=== PATIENT | male | born 1990 | race Caucasian/White ===

== ENCOUNTER 2023-04-20 20:34 | Emergency (ER) | payer MEDICAID, SELFPAY ==
[2023-04-20 20:41] VITALS: BP 138/84; PULSE 117; RESP 18; TEMP 36.5; O2SAT 97; BMI 21.7
[2023-04-20 21:01] LABS: Basophils # 0.1 10^3/uL (0.0-0.1); Basophils % 1.2 %; Eosinophils # 0.5 10^3/uL (0.0-0.8); Eosinophils % 4.9 %; Lymphocytes # 4.7 10^3/uL (0.8-4.8); Mean Corpuscular HGB Conc 34.3 g/dL (30-55); Mean Corpuscular Hemoglobin 30.9 pg (27-33); Mean Corpuscular Volume 89.8 fl (82-101); Mean Platelet Volume 10.2 fL (7.4-10.4); Monocytes # 0.5 10^3/uL (0.2-0.9); Monocytes % 4.9 %; Neutrophils # 4.38 10^3/uL (1.8-7.7); Neutrophils % 42.9 %; Nucleated Red Blood Cells % 0 %; Platelet Count 341 10^3/cmm (157-399); Red Blood Count 5.12 10^6/uL (3.85-5.65); Red Cell Distribution Width 15.2 % (12.1-15.1)
--- NOTE | 2023-04-20 21:04 | W.ED.SEIZURE ---
HPI - Seizure General: Chief Complaint: Seizure Stated Complaint: mhe Time Seen by Provider: 04/20/23 20:52 History of Present Illness: HPI Narrative: Patient presents to the ER with complaints of heavy ethanol use over the past multiple months. He has tried detoxing multiple times and has a history of seizures. Patient admits to drinking 2 pints of vodka per day. Patient is trying to Detox currently and has good support and go to [employer] and has support on his job patient is tried detoxing multiple times in the past. Patient does have a history of seizures when he does this. Patient is also been on Librium in the past for this. Patient presents to the ER today to ask for a prescription of Librium and to check his liver function. Review of Systems General: Reports: 10 or more systems reviewed and unremarkable except in HPI and below PFSH ED PFSH: Family History Denies family history of Diabetes Clotting disorder Heart disease Bleeding disorder Cancer Hypertension Thyroid disease Stroke Physical Exam Const: COMMON NORMALS: no acute distress, average body habitus, patient oriented x3, no limitations, healthy appearing, alert and well nourished HENMT: COMMON NORMALS: normocephalic, atraumatic, hearing grossly normal bilaterally, external ears normal, Normal external nose present, moist oral mucous membranes and oropharynx normal HEAD & SCALP: normocephalic and atraumatic NOSE: Normal external nose present EXTERNAL EAR: Yes external ears normal Neck/C-Spine: COMMON NORMALS: full ROM, no lymphadenopathy, supple, no meningeal signs, no JVD and Thyroid normal THYROID: Thyroid normal Chest: COMMONS NORMALS: normal inspection of the chest and normal palpation of entire chest wall Resp: COMMON NORMALS: normal respiratory effort, No retractions, No use of accessory muscles and clear to auscultation bilaterally AUSCULTATION: clear to auscultation bilaterally Cardio: COMMON NORMALS: no JVD, regular rate, regular rhythm, S1 normal heart sound present, S2 normal heart sound present, No gallops present (Cardio), No clicks present (Cardio), No murmurs present (Cardio) and No rub (Cardio) RATE: regular rate RHYTHM: regular rhythm HEART SOUNDS: S1 normal heart sound present and S2 normal heart sound present GI: COMMON NORMALS: Normal to inspection, nondistended, normoactive bowel sounds present, Soft to palpation, non-tender, No hepatosplenomegaly present and no masses PALPATION: Yes Soft to palpation and Yes No hepatosplenomegaly present Neuro: COMMON NORMALS: patient oriented x3 SENSORIUM/ORIENTATION: Yes alert MENINGEAL SIGNS: Yes no meningeal signs Course Vital Signs: Vital signs: Vital Signs Temperature 97.7 F 04/20/23 20:41 Pulse Rate 117 H 04/20/23 20:41 Respiratory Rate 18 04/20/23 20:41 Blood Pressure 138/84 04/20/23 20:41 Pulse Oximetry 97 04/20/23 20:41 Oxygen Delivery Me thod Room Air 04/20/23 20:41 MDM - Seizure Differential Diagnosis Seizure Differential Diagnosis: Unlikely intractable seizure disorder, febrile convulsion, focal seizure, generalized seizure, new onset seizure, epileptic seizure or status epilepticus Medical Records Attestation: I reviewed the patient's medical records. Lab Data Attestation: I reviewed the patient's lab results. 04/20/23 20:55 04/20/23 20:55 Labs: Laboratory Results WBC 10.20 10^3/uL (3.29-11.43) 04/20/23 20:55 RBC 5.12 10^6/uL (3.85-5.65) 04/20/23 20:55 Hgb 15.80 g/dL (11.27-16.99) 04/20/23 20:55 Hct 46.0 % (37-53) 04/20/23 20:55 MCV 89.8 fl (82-101) 04/20/23 20:55 MCH 30.9 pg (27-33) 04/20/23 20:55 MCHC 34.3 g/dL (30-55) 04/20/23 20:55 RDW 15.2 % (12.1-15.1) H 04/20/23 20:55 Plt Count 341 10^3/cmm (157-399) 04/20/23 20:55 MPV 10.2 fL (7.4-10.4) 04/20/23 20:55 Neut % (Auto) 42.9 % 04/20/23 20:55 Lymph % (Auto) 46.0 % 04/20/23 20:55 [place] % (Auto) 4.9 % 04/20/23 20:55 Eos % (Auto) 4.9 % 04/20/23 20:55 Baso % (Auto) 1.2 % 04/20/23 20:55 Neut # (Auto) 4.38 10^3/uL (1.8-7.7) 04/20/23 20:55 Lymph # (Auto) 4.7 10^3/uL (0.8-4.8) 04/20/23 20:55 [place] # (Auto) 0.5 10^3/uL (0.2-0.9) 04/20/23 20:55 Eos # (Auto) 0.5 10^3/uL (0.0-0.8) 04/20/23 20:55 Baso # (Auto) 0.1 10^3/uL (0.0-0.1) 04/20/23 20:55 Nucleated RBC % (auto) 0 % 04/20/23 20: Nucleated RBCs # 0.0 /100WBC 04/20/23 20:55 Potassium 4.2 mmol/L (3.5-5.1) 04/20/23 20:55 Carbon Dioxide 25 mmol/L (22-29) 04/20/23 20:55 Anion Gap 18.2 (5-19) 04/20/23 20:55 BUN 9 mg/dL (6-20) 04/20/23 20:55 Glucose 115 mg/dL (65-115) 04/20/23 20:55 Calcium 8.9 mg/dL (8.5-10.5) 04/20/23 20:55 Total Bilirubin 0.2 mg/dL (0.15-1.2) 04/20/23 20:55 AST 36 U/L (0-40) 04/20/23 20:55 ALT 23 U/L (0-41) 04/20/23 20:55 Alkaline Phosphatase 90 U/L (40-130) 04/20/23 20:55 Total Protein 7.5 g/dL (6.6-8.7) 04/20/23 20:55 Albumin 4.6 g/dL (3.5-5.2) 04/20/23 20:55 Globulin 2.9 g/dL (1.3-4.6) 11/20/23 20:55 All radiology interpretation(s) finalized by discharge Discharge Plan Discharge Patient Disposition: Home Clinical Impression: Alcohol intoxication Qualifiers: Complication of substance-induced condition: uncomplicated Qualified Code(s): F10.920 - Alcohol use, unspecified with intoxication, uncomplicated Condition: Stable Prescriptions: New chlordiazepoxide HCl 25 mg capsule 25 mg PO Q8H PRN (Reason: alcohol withdrawal) Qty: 30 0RF No Action No Known Home Medications Discharge Orders: Discharge ED (Routine); Ordered 04/20/23 Ordered By: Barry Johnson Patient Instructions: Alcohol Withdrawal Activity Restrictions/Additional Instructions: Please use your medicine as directed as needed. Please follow-up with your family practice physician for further evaluation and treatment. Please keep going to your support groups for alcohol use. Coding Level of Care Code ED Hvac Project Manager for Ninfa Russo
[2023-04-20 21:22] LABS: Alanine Aminotransferase 23 U/L (0-41); Albumin Level 4.6 g/dL (3.5-5.2); Alkaline Phosphatase 90 U/L (40-130); Anion Gap 18.2 (5-19); Aspartate Amino Transferase 36 U/L (0-40); Blood Urea Nitrogen 9 mg/dL (6-20); Calcium 8.9 mg/dL (8.5-10.5); Carbon Dioxide 25 mmol/L (22-29); Chloride 109 mmol/L (98-107); Globulin 2.9 g/dL (1.3-4.6); Glomerular Filtration Rate 191.5 mL/min (90-130); Glucose 115 mg/dL (65-115); Osmolality Calculated 306 mOsm/kg (285-295); Potassium 4.2 mmol/L (3.5-5.1); Sodium 148 mmol/L (136-145); Total Bilirubin 0.2 mg/dL (0.15-1.2); Total Protein 7.5 g/dL (6.6-8.7)
[2023-04-20 21:37] LABS: Acetaminophen < 5.0 ug/mL (10-30); Salicylate < 0.3 mg/dL (3-10)
[2023-04-20 21:38] LABS: Alcohol Level 345 mg/dL (0-10)
[2023-04-21 00:28] VITALS: PULSE 82; RESP 16
== END 2023-04-21 00:32 | disposition home or self-care (01) ==
PROVIDERS: Emergency Provider Emergency Medicine
DX: F10.920 Alcohol use, unspecified with intoxication, uncomplicated (principal)
CPT/HCPCS: 36415; 80053; 80307; 85025; 99283

== ENCOUNTER 2023-05-01 19:33 | Emergency (ER) | payer MEDICAID, SELFPAY ==
[2023-05-01 19:37] VITALS: BP 141/93; PULSE 108; RESP 17; TEMP 36.8; O2SAT 96; BMI 23.0
[2023-05-01 20:19] LABS: Basophils # 0.1 10^3/uL (0.0-0.1); Basophils % 1.3 %; Eosinophils # 0.2 10^3/uL (0.0-0.8); Eosinophils % 2.1 %; Hematocrit 49.7 % (37-53); Lymphocytes % 41.4 %; Mean Corpuscular HGB Conc 33.6 g/dL (30-55); Mean Corpuscular Hemoglobin 31.2 pg (27-33); Mean Corpuscular Volume 92.7 fl (82-101); Mean Platelet Volume 10.3 fL (7.4-10.4); Monocytes # 0.5 10^3/uL (0.2-0.9); Monocytes % 5.4 %; Neutrophils # 4.77 10^3/uL (1.8-7.7); Neutrophils % 49.6 %; Nucleated Red Blood Cells % 0 %; Platelet Count 367 10^3/cmm (157-399); Red Blood Count 5.36 10^6/uL (3.85-5.65); Red Cell Distribution Width 15.4 % (12.1-15.1)
[2023-05-01 20:54] LABS: Alanine Aminotransferase 33 U/L (0-41); Albumin Level 4.9 g/dL (3.5-5.2); Alkaline Phosphatase 82 U/L (40-130); Aspartate Amino Transferase 52 U/L (0-40); Blood Urea Nitrogen 9 mg/dL (6-20); Calcium 8.9 mg/dL (8.5-10.5); Carbon Dioxide 25 mmol/L (22-29); Chloride 108 mmol/L (98-107); Globulin 2.9 g/dL (1.3-4.6); Glomerular Filtration Rate 191.5 mL/min (90-130); Glucose 96 mg/dL (65-115); Osmolality Calculated 303 mOsm/kg (285-295); Sodium 147 mmol/L (136-145); Total Bilirubin 0.2 mg/dL (0.15-1.2); Total Protein 7.8 g/dL (6.6-8.7)
[2023-05-01 20:58] LABS: Acetaminophen < 5.0 ug/mL (10-30); Salicylate < 0.3 mg/dL (3-10)
[2023-05-01 20:59] LABS: Alcohol Level 426 mg/dL (0-10)
--- NOTE | 2023-05-01 21:14 | ECG_ITS ---
[facility] Test Date: 2023-05-01 Pat Name: Vahe Mcdonald Department: Room: Gender: Male Manager [employer] Business: : 1990 Requested By: Ben Montes Order Number: [id number] Christianson MD: Beth Rob M.D. Measurements Intervals [place] Rate: 95 P: 78 NM: 161 QRS: 59 QRSD: 89 T: 68 QT: 359 QTc: 453 Interpretive Statements SINUS RHYTHM POSSIBLE RIGHT ATRIAL ENLARGEMENT [0.25mV P-WAVE] POSSIBLE LEFT ATRIAL ENLARGEMENT [-0.1mV P-WAVE IN V1/V2] POSSIBLE RIGHT VENTRICULAR CONDUCTION DELAY [RSR (QR) IN V1/V2] No previous ECG available for comparison Electronically Signed On 05-02-2023 5:55:45 [employer]OVEN [employer] SHADE ASSEMBLER by Beth Rob M.D. [email or web address]
[2023-05-01 21:25] LABS: Thyroid Stimulating Hormone 0.57 uIU/mL (0.27-4.20)
[2023-05-01 21:26] LABS: Amphetamines Screen Urine Negative (Negative); Barbiturates Screen Urine Negative (Negative); Benzodiazepines Screen Urine Positive (Negative); Cocaine Screen Urine Negative (Negative); Opiate Screen Urine Negative (Negative); PCP Screen Urine Negative (Negative); THC Screen Urine Negative (Negative)
--- NOTE | 2023-05-01 21:26 | ED.C_ITS ---
HPI - Psych 2 General: Chief Complaint: Psychiatric Symptoms Stated Complaint: Seizure, etoh detox Time Seen by Provider: 05/01/23 19:56 History of Present Illness: 32-year-old male with a history of alcoh ol abuse. He presents with alcohol intoxication. He also made a claim anyone issued himself with a gun to kill himself. He admits to having 2 pints of whiskey drink earlier today. No other medical history. Her only other prior visit for this gentleman was for alcohol intoxication and wanting to detox several days ago. Associated symptoms: Reports depression and suicidal ideation; Deny homicidal ideation Review of Systems 2 Const: Denies: fever(s) Card: Denies: chest pain GI: Denies: vomiting Neuro: Reports: Slurred speech present Psych: Reports: depression and suicidal ideation; Denies: homicidal ideation PFSH ED 2 PFSH: Family History Denies family history of Diabetes Clotting disorder Heart disease Bleeding disorder Cancer Hypertension Thyroid disease Stroke Physical Exam 2 Const: COMMON NORMALS: no acute distress GENERAL APPEARANCE: cooperative; not ill appearing and not frail appearing HENMT: COMMON NORMALS: normocephalic, atraumatic and Normal external nose present HEAD & SCALP: normocephalic and atraumatic FACE & SINUS: normal facial exam and face symmetric NOSE: Normal external nose present Eye: COMMON NORMALS: Equal, round and reactive pupils present and EOMs intact bilaterally PUPIL: Yes Equal, round and reactive pupils present Neck/C-Spine: GENERAL: Yes trachea midline Chest: CHEST: Yes Symmetrical chest wall rise Resp: COMMON NORMALS: normal respiratory effort, No retractions, No use of accessory muscles and clear to auscultation bilaterally AUSCULTATION: clear to auscultation bilaterally Cardio: COMMON NORMALS: regular rate and regular rhythm RATE: regular rate RHYTHM: regular rhythm GI: COMMON NORMALS: Normal to inspection, nondistended, normoactive bowel sounds present Extremity: COMMON NORMALS: no pedal edema Neuro: MACARIO COMA SCALE: document GCS findings Macario coma scale eye opening: To sound Macario coma scale verbal response: Orientated [place] coma scale motor response: Obey commands [place] coma scale total score: 14 S ENSORY EXAM: Yes extremities (intact) Psych: COMMON NORMALS: speech normal SPEECH: Yes normal speech Skin: COMMON NORMALS: no rashes or lesions noted GENERAL SKIN EXAM: no rashes or lesions noted Course 2 Vital Signs: Vital signs: Vital Signs Temperature 98.3 F 05/01/23 19:37 Pulse Rate 108 H 05/01/23 19:37 Respiratory Rate 17 05/01/23 19:37 Blood Pressure 141/93 05/01/23 19:37 Pulse Oximetry 96 05/01/23 19:37 Oxygen Delivery Me thod Room Air 05/01/23 19:37 MDM - Psych Medical Decision Making Patient is significantly intoxicated. His alcohol level is 426. Sodium 147. Other laboratory not remarkable. His vitals are normal. He is pretty lethargic on exam although arousable. We have no beds available currently in our neuropsychiatric unit. He will essentially be quite sometime before this patient is sober enough for medical clearance for transfer should he remain suicidal once sober. We will recheck an alcohol level in the morning. Patient is awake, and alert. He is not suicidal. He is upset with his integrated marketing manager, who evidently told him to tell us he was suicidal so that he would get back to be seen sooner . He would like to go home. He will be discharged. He is allowed to call his fianc?e. Lab Data 05/01/23 20:14 05/01/23 20:14 Laboratory Results WBC 9.60 10^3/uL (3.29-11.43) 05/01/23 20:14 RBC 5.36 10^6/uL (3.85-5.65) 05/01/23 20:14 Hgb 16.70 g/dL (11.27-16.99) 05/01/23 20:14 Hct 49.7 % (37-53) 05/01/23 20:14 MCV 92.7 fl (82-101) 05/01/23 20:14 MCH 31.2 pg (27-33) 05/01/23 20:14 MCHC 33.6 g/dL (30-55) 05/01/23 20:14 RDW 15.4 % (12.1-15.1) H 05/01/23 20:14 Plt Count 367 10^3/cmm (157-399) 05/01/23 20:14 MPV 10.3 fL (7.4-10.4) 05/01/23 20:14 Neut % (Auto) 49.6 % 05/01/23 20:14 Lymph % (Auto) 41.4 % 05/01/23 20:14 [place] % (Auto) 5.4 % 05/01/23 20:14 Eos % (Auto) 2.1 % 05/01/23 20:14 Baso % (Auto) 1.3 % 05/01/23 20:14 Neut # (Auto) 4.77 10^3/uL (1.8-7.7) 05/01/23 20:14 Lymph # (Auto) 4.0 10^3/uL (0.8-4.8) 05/01/23 20:14 [place] # (Auto) 0.5 10^3/uL (0.2-0.9) 05/01/23 20:14 Eos # (Auto) 0.2 10^3/uL (0.0-0.8) 05/01/23 20:14 Baso # (Auto) 0.1 10^3/uL (0.0-0.1) 05/01/23 20:14 Nucleated RBC % (auto) 0 % 05/01/23 20:14 Nucleated RBCs # 0.0 /100WBC 05/01/23 20:14 PT 12.50 SECONDS (12.1-14.9) 05/01/23 20:14 INR 0.90 (0.8-1.2) 05/01/23 20:14 Sodium 147 mmol/L (136-145) H 05/01/23 20:14 Potassium 4.0 mmol/L (3.5-5.1) 05/01/23 20:14 Chloride 108 mmol/L (98-107) H 05/01/23 20:14 Carbon Dioxide 25 mmol/L (22-29) 05/01/23 20:14 Anion Gap 18.0 (5-19) 05/01/23 20:14 BUN 9 mg/dL (6-20) 05/01/23 20:14 Creatinine 0.5 mg/dL (0.7-1.2) L 05/01/23 20:14 GFR Calculation 191.5 mL/min (90-130) H 05/01/23 20:14 Glucose 96 mg/dL (65-115) 05/01/23 20:14 Calculated Osmolality 303 mOsm/kg (285-295) H 05/01/23 20:14 Calcium 8.9 mg/dL (8.5-10.5) 05/01/23 20:14 Total Bilirubin 0.2 mg/dL (0.15-1.2) 05/01/23 20:14 AST 52 U/L (0-40) H 05/01/23 20:14 ALT 33 U/L (0-41) 05/01/23 20:14 Alkaline Phosphatase 82 U/L (40-130) 05/01/23 20:14 Total Protein 7.8 g/dL (6.6-8.7) 05/01/23 20:14 Albumin 4.9 g/dL (3.5-5.2) 05/01/23 20:14 Globulin 2.9 g/dL (1.3-4.6) 05/01/23 20:14 TSH 0.57 uIU/mL (0.27-4.20) 05/01/23 20:14 Urine Color Yellow (Yellow) 05/01/23 20:02 Urine Appearance Clear (CLEAR) 05/01/23 20:02 Urine pH 5 (5-7) 05/01/23 20:02 Ur Specific [place] 1.015 (1.005-1.030) 05/01/23 20:02 Urine Protein 1+ (Negative) H 05/01/23 20:02 Urine Glucose (UA) Norm (Normal) 05/01/23 20:02 Urine Ketones Negative (Negative) 05/01/23 20:02 Urine Blood Neg (Negative) 05/01/23 20:02 Urine Nitrate Negative (Negative) 05/01/23 20:02 Urine Bilirubin Neg (Negative) 05/01/23 20:02 Urine Urobilinogen Neg mg/dL (Negative) 05/01/23 20:02 Ur Leukocyte Esterase Negative (Negative) 05/01/23 20:02 Urine RBC None /hpf (0-2) 05/01/23 20:02 Urine WBC None /hpf (0-5) 05/01/23 20:02 Ur Squamous Epith Cells Rare /hpf (0-5) 05/01/23 20:02 Amorphous Sediment Not Reportable 05/01/23 20:02 Urine Bacteria None /hpf (NONE) 05/01/23 20:02 Salicylates < 0.3 mg/dL (3-10) L 05/01/23 20:14 Urine Opiates Screen Negative ng/mL (Negative) 05/01/23 20:02 Acetaminophen < 5.0 ug/mL (10-30) L 05/01/23 20:14 Ur Barbiturates Screen Negative ng/mL (Negative) 05/01/23 20:02 Ur Phencyclidine Scrn Negative ng/mL (Negative) 05/01/23 20:02 Ur Amphetamines Screen Negative ng/mL (Negative) 05/01/23 20:02 U Benzodiazepines Scrn Positive ng/mL (Negative) H 05/01/23 20:02 Urine Cocaine Screen Negative ng/mL (Negative) 05/01/23 20:02 U Marijuana (THC) Screen Negative ng/mL (Negative) 05/01/23 20:02 Ethyl Alcohol 260 mg/dL (0-10) H 05/02/23 03:20 SARS-CoV-2 Ag (Rapid) negative (Negative) 05/01/23 20:23 No radiology studies performed this visit Discharge Plan Discharge Patient Disposition: Home Clinical Impression: Alcohol intoxication Condition: Stable Prescriptions: No Action No Known Home Medications chlordiazepoxide HCl 25 mg capsule 25 mg PO Q8H PRN (Reason: alcohol withdrawal) Qty: 30 0RF Discharge Orders: Discharge ED (Routine); Ordered 05/02/23 Ordered By: Ben Monsalve Patient Instructions: Alcohol Intoxication (ED) Activity Restrictions/Additional Instructions: Return for any concerning symptoms. Coding Level of Care Code ED Credit Administration Manager for Ninfa Russo
[2023-05-01 21:51] LABS: SARS Covid-2 Antigen negative (Negative)
[2023-05-01 21:57] LABS: Add Urine Culture? No; Add Urine Microscopic? YES; Bilirubin Urine Neg (Negative); Blood Urine Neg (Negative); Glucose Urine UA Norm (Normal); Ketones Urine Negative (Negative); Leukocyte Esterase Urine Negative (Negative); Nitrate Urine Negative (Negative); Protein Urine 1+ (Negative); Specific Gravity, Urine 1.015 (1.005-1.030); Squamous Epithelial Cell Urine RARE /hpf (0-5); Urine Appearance Clear (CLEAR); Urine Color Yellow (Yellow); Urobilinogen Urine Neg (Negative); pH Urine 5 (5-7)
--- NOTE | 2023-05-02 03:58 | PC.NURSE ---
Once patient has sobered from ETOH , pt. states that he is not a threat to himself or others and wants to go home.
[2023-05-02 04:04] LABS: Alcohol Level 260 mg/dL (0-10)
== END 2023-05-02 04:00 | disposition home or self-care (01) ==
PROVIDERS: Emergency Medicine; Emergency Provider Emergency Medicine
DX: F10.129 Alcohol abuse with intoxication, unspecified (principal); Y90.8 Blood alcohol level of 240 mg/100 ml or more; Z11.52 Encounter for screening for COVID-19
CPT/HCPCS: 80053; 80306; 80307; 81001; 84443; 85025; 85610; 87426; 93005; 99284

== ENCOUNTER 2023-05-22 16:01 | Inpatient (IN) | payer MEDICAID, SELFPAY ==
[2023-05-22 16:06] VITALS: BP 121/79; PULSE 96; RESP 16; TEMP 36.8; O2SAT 96; BMI 21.7
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
[2023-05-22 17:42] LABS: Basophils # 0.1 10^3/uL (0.0-0.1); Basophils % 1.1 %; Eosinophils # 0.2 10^3/uL (0.0-0.8); Hematocrit 46.2 % (37-53); Lymphocytes # 4.1 10^3/uL (0.8-4.8); Mean Corpuscular Hemoglobin 30.7 pg (27-33); Mean Corpuscular Volume 95.9 fl (82-101); Monocytes # 0.4 10^3/uL (0.2-0.9); Monocytes % 3.8 %; Neutrophils % 56.7 %; Nucleated Red Blood Cells % 0 %; Platelet Count 379 10^3/cmm (157-399); Red Blood Count 4.82 10^6/uL (3.85-5.65); White Blood Count 11.48 10^3/uL (3.29-11.43)
[2023-05-22 18:07] LABS: Alanine Aminotransferase 11 U/L (0-41); Albumin Level 4.9 g/dL (3.5-5.2); Alkaline Phosphatase 65 U/L (40-130); Anion Gap 18.2 (5-19); Aspartate Amino Transferase 21 U/L (0-40); Blood Urea Nitrogen 8 mg/dL (6-20); Carbon Dioxide 23 mmol/L (22-29); Chloride 108 mmol/L (98-107); Globulin 2.7 g/dL (1.3-4.6); Glomerular Filtration Rate 155.2 mL/min (90-130); Glucose 91 mg/dL (65-115); Osmolality Calculated 298 mOsm/kg (285-295); Potassium 4.2 mmol/L (3.5-5.1); Sodium 145 mmol/L (136-145); Total Bilirubin 0.2 mg/dL (0.15-1.2); Total Protein 7.6 g/dL (6.6-8.7)
[2023-05-22 18:42] LABS: Alcohol Level 346 mg/dL (0-10)
[2023-05-22 19:14] LABS: Add Urine Microscopic? NO; Charge for UA Resulting for Rev
[2023-05-22] MEDS: tetanus-dipt-pertussis 0.5 mL SDV IM (19:18)
--- NOTE | 2023-05-22 19:20 | PC.NURSE ---
96 Hour hold rights read and reviewed with patient. Patient requested to speak with his wood gang sawyer. He stated he will not sign anything until he speaks with him. This nurse told patient that was his right. Copy of rights left at the bedside with patient.
[2023-05-22 19:39] LABS: Bilirubin Urine Neg (Negative); Blood Urine Neg (Negative); Glucose Urine UA Norm (Normal); Ketones Urine Negative (Negative); Leukocyte Esterase Urine Negative (Negative); Nitrate Urine Negative (Negative); Protein Urine Neg (Negative); Specific Gravity, Urine 1.015 (1.005-1.030); Urine Appearance Clear (CLEAR); Urine Color Yellow (Yellow); Urobilinogen Urine Norm (Negative); pH Urine 5 (5-7)
[2023-05-22 20:20] VITALS: BP 121/79; PULSE 96; RESP 16; TEMP 36.8; O2SAT 96
[2023-05-22] MEDS: LORazepam 2 mg/mL INJ 1 mL IM (20:33)
[2023-05-22] MEDS: haloperidol inj 5 mg/mL INJ 1 mL IM (20:33)
[2023-05-22] MEDS: diphenhydrAMINE 50 mg/mL SDV 1mL IM (20:33)
--- NOTE | 2023-05-22 21:18 | PC.NURSE ---
Pt arrived to [facility] @ 1930 escorted to unit by RN and security at side. Pt agitated and aggressive regarding involuntary admission stating I need to call my steam station supervisor . Pt would not give back personal items, and was banging on exit door in attempt to elope. Code 10 initiated d/t agitation, aggression, anxiety, w/non-compliance with admission. Staff members present for code ten myself, Alisia LOBO, Leeann supervisor continuous weld pipe mill, Rosa [facility] ER, Briana [facility] ER, Stephon holley, Cammie LAURA CSU, Simon [place] [facility], Bertrand [facility] ICU. After speaking to pt was able to get him to his room and injections benadryl, ativan, haldol were administered w/o difficulty. Pt is now resting in bed quietly, no further events at this time.
[2023-05-22 21:24] VITALS: RESP 18
[2023-05-23 02:49] LABS: Amphetamines Screen Urine Negative (Negative); Barbiturates Screen Urine Negative (Negative); Benzodiazepines Screen Urine Negative (Negative); Cocaine Screen Urine Negative (Negative); Opiate Screen Urine Negative (Negative); PCP Screen Urine Negative (Negative); THC Screen Urine Negative (Negative)
[2023-05-23 06:00] VITALS: BP 119/66; PULSE 94; RESP 18; O2SAT 95
[2023-05-23] MEDS: sulfamethoxazole-trimeth DS 160-800 mg Tablet 2 TAB PO ×2 (08:43→17:49)
[2023-05-23] MEDS: multivitamin therapeutic Tablet 1 TAB PO (08:43)
[2023-05-23] MEDS: folic acid 1 mg Tablet PO (08:43)
[2023-05-23] MEDS: thiamine 100 mg Tablet PO (08:43)
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
--- NOTE | 2023-05-23 12:09 | P.NPUHP_ITS ---
Providers/Chief Complaint 2 Admitting Physician: Avtar Alonzo MD Chief Complaint: 96 hour hold HPI NPU History of Present Illness Vahe Mcdonald is a 32 year old male who presented to the emergency department with the following report: Chief Complaint: Psychiatric Symptoms Stated Complaint: 96 hour hold Time Seen by Provider: 05/22/23 16:17 Source: patient Mode of arrival: other (Law enforcement) History of Present Illness: 32-year-old male presents to the emergency room with complaints of being intoxicated has self harmed using a knife he stabbed himself in the right foot yesterday its mildly red and he also made several superficial cuts on his left wrist in the last 4 weeks he has been to the emergency room twice before with acute alcohol intoxication he was discharged home with chlordiazepoxide. He continues to drink admits to drinking up to 1/5 or more per day. He initially refused to speak about his injuries he later does admit to his made allusions to harming himself to the patrol police sergeant please officer signed an affidavit regarding his statements alluding to suicidal ideation. He got into a fight with his today and she is scared to have him at home because of his behavior. He expresses a wish to stop drinking he states he has gone to rehab and was sober in the past but recently relapsed. complaint: suicidal ideation History of same: Yes Relieving factors: none Exacerbating factors: none Associated psychiatric symptoms: none Associated symptoms: Reports suicidal ideation If self harm: admits thoughts of self harm. He was admitted to the neuropsychiatric unit for definitive treatment of those issues. He presents today reporting that he has never been in a psychiatric facility and never been on psychiatric medications. He reports recently graduating from [place] [id number] and reports that he may be had 2 months of sobriety before he was back to drinking again. He reports he may be had some treatment when he was a teenager and around [age] he may have been on Zoloft for about 6 months. He reports he smokes about a pack of cigarettes a day and has been for about 22 years he reports that he drinks alcohol heavily and has had significant difficulty for some time he denies marijuana or any other illicit drugs he reports that he has been in rehab before and was in [place] [id number] sometime but not a full year but he graduated he reports he had a DUI about 5 years ago. He denies any depression but reports that he relapsed and was starting to get really stressed about things going on in his life. He reports that his fianc?e is and he is never had kids and never thought he would have kids and this is really stressed him out. He reports that he recently lost his car and his fianc?e lost her job so he has been working 2 jobs just to keep up. He denies anxiety, PTSD OCD depression or psychotic symptoms. He reports he is working with some close friend to possibly get into [employer] which he would do for 1 year he reports that he needs a place where he will be able to work because he has this new responsibility and he has all of his anxiety about being able to provide. He reports he has never had children and previous women have gotten her tubes tied so this was just unexpected. We talked about his blood alcohol being 360+ this time and 460 when he came at the beginning of May. We discussed the possibility of starting naltrexone after discussing the risks, benefits and alternatives he understood and agreed to proceed as is documented in this note. Psychiatric history: As above. Substance abuse history: As above. Family history: He endorses no mental health issues on either side of the family but addiction issues on both sides of the family and denied any known suicide attempts or completions. Developmental history: He reports that his mother was drinking heavily during her but reports he learned to walk and talk and met his developmental milestones on time. When he went off to school he denies needing any speech therapy, learning support emotional support or special education classes. Psychosocial history: He reports that his parents were together when he was born and that he is the only product of that union he reports his mother did not have any other children and his father had a another daughter that his half sister. He reports his childhood was normal and denied any emotional physical or sexual abuse denied any other trauma in his life he endorsed going to the 11th grade dropping out and eventually getting his GED. He endorses being straight and his longest relationship was 10 years has been twice and twice he has no children he was in the [employer] in [facility] from [phone] is a 19 delta. Endorses being a born again Christianity. 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 He currently lives in a house with his girlfriend and their 4 and 9-year-old sons. That are not his by . Legal history: He was in alf 3 times. Medical history: He denies any significant medical issues. Meds NPU Home Medications Medication Instructions Recorded Confirmed Last Taken Type chlordiazepoxide HCl 25 mg capsule 25 mg PO Q8H PRN alcohol 04/20/23 05/22/23 Unknown Rx withdrawal #30 caps Allergies Allergy/AdvReac Type Severity Reaction Status Date / Time amoxicillin Allergy ALGY-Difficulty Verified 04/20/23 20:49 Swallowing PFSH NPU 2 PFSH: Family History Denies family history of Diabetes Clotting disorder Heart disease Bleeding disorder Cancer Hypertension Thyroid disease Stroke Mental Status Exam 2 MSE Comments: Is a slender, well-developed white male in hospital scrubs with limited grooming and adequate eye contact. No abnormal movements except for mild psychomotor retardation. Cooperative with exam in mild distress. Speech was slightly decreased rate and volume. Mood described as okay but concerned, affect slightly subdued. Thought process organized. Thought content: Patient denies suicidal or homicidal ideation, there were no delusions reported or noted, he denied any auditory or visual hallucinations. Attention and concentration appeared intact and memory was mostly reliable but none were formally tested. He is alert and oriented x 3. Insight, judgment are limited and impulse control is impaired. Vitals/I&O/Wt Last Vital Signs Temp 98.3 F 05/22/23 20:20 Pulse 94 05/23/23 06:00 Resp 18 05/23/23 06:00 BP 119/66 05/23/23 06:00 Pulse Ox 95 05/23/23 06:00 O2 Del Method Room Air 05/23/23 09:00 Weight last 48 hrs Weight 72.575 kg Data NPU 05/22/23 17:22 05/22/23 17:22 A&P Assessment and plan (1) Suicidal ideation: (2) Acute alcohol intoxication: (3) Alcohol withdrawal: (4) Adjustment disorder with mixed disturbance of emotions and conduct: Plan This is a 32-year-old white male with a long history of addiction with significant alcohol use disorder who presented with a blood alcohol of 367 and reports of suicidal ideation now reporting that he is only having those thoughts against the backdrop of his significant daily use and denied desire to have a prolonged stay and reporting he has a plan for recovery. 1. Encourage individual, group and milieu therapy. 2. Recommend sober living treatment at the highest level of care to which the patient is willing to commit. 3. Continue q-15 minute checks for safety.? 4.? Continue current medication. And consider initiating naltrexone during the stay. 5.? Initiate CIWA protocol and evaluate against the backdrop of the 96-hour hold. Involuntary Hold Information 2 96 Hour Hold: 96 Hour Involuntary Admission: Yes 96 Hour Hold Ending Date: 05/29/23 96 Hour Hold Ending Time: 17:24 Attestations NPU 2 Medical Necessity Statement*: Inpatient hospitalization is medically necessary and deemed to be the clinically appropriate intervention at this time. The patient will be evaluated and medications will be initiated and titrated upwards as clinically indicated. The patient will be hospitalized for at least 2 midnights. His likely length of stay is 2-4 days. Coding Level of Care Code Acute Code for [facility] Fwd Diagnoses Suicidal ideation R45.851 Acute alcohol intoxication F10.929 Alcohol withdrawal F10.939 Adjustment disorder with mixed disturbance of emotions and conduct F43.25
[2023-05-23 14:00] VITALS: BP 123/74; PULSE 90; RESP 17; TEMP 36.9; O2SAT 94
[2023-05-23 19:59] VITALS: BP 120/83; PULSE 99; RESP 18; TEMP 36.6; O2SAT 95
[2023-05-24 06:00] VITALS: BP 105/70; PULSE 100; RESP 15; TEMP 36.9; O2SAT 95
[2023-05-24] MEDS: thiamine 100 mg Tablet PO (08:23)
[2023-05-24] MEDS: sulfamethoxazole-trimeth DS 160-800 mg Tablet 2 TAB PO ×2 (08:23→17:59)
[2023-05-24] MEDS: folic acid 1 mg Tablet PO (08:23)
[2023-05-24] MEDS: multivitamin therapeutic Tablet 1 TAB PO (08:23)
--- NOTE | 2023-05-24 10:32 | W.PM.NPUPNS ---
Subjective NPU Subjective: Patient presented today reporting that he is feeling better. He reports that he is still working with people in [place] to find an option for sober living that will be longer than his last when he did. We talked about the possibility of starting naltrexone tomorrow once again reviewing the risks, benefits and alternatives he understood and agreed to consider trying the medication tomorrow as documented in this note. He reported his withdrawal is going fine and he is trying to focus on getting better and not the fact that tomorrow was [place]. Mental Status Exam MSE Comments: Is a slender, well-developed white male in hospital scrubs with limited grooming and adequate eye contact. No abnormal movements except for mild psychomotor retardation. Cooperative with exam in mild distress. Speech was slightly decreased rate and volume. Mood described as a little better, affect slightly subdued. Thought process organized. Thought content: Patient denies suicidal or homicidal ideation, there were no delusions reported or noted, he denied any auditory or visual hallucinations. Attention and concentration appeared intact and memory was mostly reliable but none were formally tested. He is alert and oriented x 3. Insight, judgment are limited and impulse control is impaired. Vitals/I&O/Wt Last Vital Signs Temp 98.4 F 05/24/23 06:00 Pulse 100 05/24/23 06:00 Resp 15 05/24/23 06:00 BP 105/70 05/24/23 06:00 Pulse Ox 95 05/24/23 06:00 O2 Del Method Room Air 05/24/23 06:00 Weight last 48 hrs Weight 72.575 kg Weight 72.575 kg Data NPU 05/22/23 17:22 05/22/23 17:22 A&P Assessment and plan (1) Suicidal ideation: (2) Acute alcohol intoxication: (3) Alcohol withdrawal: (4) Adjustment disorder with mixed disturbance of emotions and conduct: Plan This is a 32-year-old white male with a long history of addiction with significant alcohol use disorder who presented with a blood alcohol of 367 and reports of suicidal ideation now reporting that he is only having those thoughts against the backdrop of his significant daily use and denied desire to have a prolonged stay and reporting he has a plan for recovery. 1. Encourage individual, group and milieu therapy. 2. Recommend sober living treatment at the highest level of care to which the patient is willing to commit. 3. Continue q-15 minute checks for safety.? 4.? Continue current medication. And consider initiating naltrexone during the stay. 5.? Initiate CIWA protocol and evaluate against the backdrop of the 96-hour hold. Involuntary Hold Information 96 Hour Hold: 96 Hour Involuntary Admission: Yes 96 Hour Hold Ending Date: 05/29/23 96 Hour Hold Ending Time: 17:24 Attestations NPU Medical Necessity Statement*: Inpatient hospitalization is medically necessary and deemed to be the clinically appropriate intervention at this time. The patient will be evaluated and medications will be initiated and titrated upwards as clinically indicated. The His likely length of stay is 2-4 days. Coding Level of Care Code Acute Code for [facility] Fwd Diagnoses Suicidal ideation R45.851 Acute alcohol intoxication F10.929 Alcohol withdrawal F10.939 Adjustment disorder with mixed disturbance of emotions and conduct F43.25
[2023-05-24] MEDS: nicotine 2 mg Gum BUCCAL ×4 (12:07→18:02)
[2023-05-24 14:00] VITALS: BP 114/75; PULSE 77; RESP 14; TEMP 36.6; O2SAT 99
[2023-05-24 19:40] VITALS: BP 109/67; PULSE 88; RESP 16; TEMP 36.8; O2SAT 95
[2023-05-24] MEDS: acetaminophen 325 mg Tablet 650 MG PO (19:49)
[2023-05-25 06:00] VITALS: BP 112/74; PULSE 98; RESP 16; TEMP 36.8; O2SAT 97
[2023-05-25] MEDS: multivitamin therapeutic Tablet 1 TAB PO (08:22)
[2023-05-25] MEDS: sulfamethoxazole-trimeth DS 160-800 mg Tablet 2 TAB PO (08:22)
[2023-05-25] MEDS: folic acid 1 mg Tablet PO (08:22)
[2023-05-25] MEDS: thiamine 100 mg Tablet PO (08:22)
[2023-05-25] MEDS: nicotine 2 mg Gum BUCCAL ×3 (08:25→12:45)
--- NOTE | 2023-05-25 09:32 | P.NPUPN_ITS ---
Vitals/I&O/Wt Last Vital Signs Temp 98.3 F 05/25/23 06:00 Pulse 98 05/25/23 06:00 Resp 16 05/25/23 06:00 BP 112/74 05/25/23 06:00 Pulse Ox 97 05/25/23 06:00 O2 Del Method Room Air 05/25/23 06:00 Weight last 48 hrs Weight 72.575 kg Weight 72.575 kg Data NPU 05/22/23 17:22 05/22/23 17:22 Involuntary Hold Information 2 96 Hour Hold: 96 Hour Involuntary Admission: Yes 96 Hour Hold Ending Date: 05/29/23 96 Hour Hold Ending Time: 17:24 Coding Level of Care Code Acute Code for [facility]wd
--- NOTE | 2023-05-25 13:07 | W.PM.NPUDCS ---
Diagnoses at Discharge Discharge Diagnosis (1) Suicidal ideation: Status: Resolved (2) Acute alcohol intoxication: Status: Resolved (3) Alcohol withdrawal: Status: Resolved (4) Adjustment disorder with mixed disturbance of emotions and conduct: Status: Acute Reason for Visit Reason for Visit: 96 hour hold Brief History: History of Present Illness Vahe Mcdonald is a 32 year old male who presented to the emergency department with the following report: Chief Complaint: Psychiatric Symptoms Stated Complaint: 96 hour hold Time Seen by Provider: 05/22/23 16:17 Source: patient Mode of arrival: other (Law enforcement) History of Present Illness: 32-year-old male presents to the emergency room with complaints of being intoxicated has self harmed using a knife he stabbed himself in the right foot yesterday its mildly red and he also made several superficial cuts on his left wrist in the last 4 weeks he has been to the emergency room twice before with acute alcohol intoxication he was discharged home with chlordiazepoxide. He continues to drink admits to drinking up to 1/5 or more per day. He initially refused to speak about his injuries he later does admit to his made allusions to harming himself to the police sergeant please officer signed an affidavit regarding his statements alluding to suicidal ideation. He got into a fight with his today and she is scared to have him at home because of his behavior. He expresses a wish to stop drinking he states he has gone to rehab and was sober in the past but recently relapsed. MD complaint: suicidal ideation History of same: Yes Relieving factors: none Exacerbating factors: none Associated psychiatric symptoms: none Associated symptoms: Reports suicidal ideation If self harm: admits thoughts of self harm. He was admitted to the neuropsychiatric unit for definitive treatment of those issues. He presents today reporting that he has never been in a psychiatric facility and never been on psychiatric medications. He reports recently graduating from [employer] [facility] and reports that he may be had 2 months of sobriety before he was back to drinking again. He reports he may be had some treatment when he was a teenager and around [age] he may have been on Zoloft for about 6 months. He reports he smokes about a pack of cigarettes a day and has been for about 22 years he reports that he drinks alcohol heavily and has had significant difficulty for some time he denies marijuana or any other illicit drugs he reports that he has been in rehab before and was in [place] [id number] sometime but not a full year but he graduated he reports he had a DUI about 5 years ago. He denies any depression but reports that he relapsed and was starting to get really stressed about things going on in his life. He reports that his firigo?bud is and he is never had kids and never thought he would have kids and this is really stressed him out. He reports that he recently lost his car and his fianc?e lost her job so he has been working 2 jobs just to keep up. He denies anxiety, PTSD OCD depression or psychotic symptoms. He reports he is working with some close friend to possibly get into [employer] which he would do for 1 year he reports that he needs a place where he will be able to work because he has this new responsibility and he has all of his anxiety about being able to provide. He reports he has never had children and previous women have gotten her tubes tied so this was just unexpected. We talked about his blood alcohol being 360+ this time and 460 when he came at the beginning of May. We discussed the possibility of starting naltrexone after discussing the risks, benefits and alternatives he understood and agreed to proceed as is documented in this note. Psychiatric history: As above. Substance abuse history: As above. Family history: He endorses no mental health issues on either side of the family but addiction issues on both sides of the family and denied any known suicide attempts or completions. Developmental history: He reports that his mother was drinking heavily during her but reports he learned to walk and talk and met his developmental milestones on time. When he went off to school he denies needing any speech therapy, learning support emotional support or special education classes. Psychosocial history: He reports that his parents were together when he was born and that he is the only product of that union he reports his mother did not have any other children and his father had a another daughter that his half sister. He reports his childhood was normal and denied any emotional physical or sexual abuse denied any other trauma in his life he endorsed going to the 11th grade dropping out and eventually getting his GED. He endorses being straight and his longest relationship was 10 years has been twice and twice he has no children he was in the [employer] in [facility] from [id number] is a 19 delta. Endorses being a born again Buddhism. 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 He currently lives in a house with his girlfriend and their 4 and 9-year-old sons. That are not his by . Legal history: He was in [facility] 3 times. Medical history: He denies any significant medical issues. Hospital Course Hospital Course He slowly acclimated to the individual, group and milieu therapies provided. He presented on a 96-hour hold after reportedly making lethal statements while his blood alcohol was 367. He was placed on the CIWA protocol and started on thiamine. He did well with the withdrawal. He was able to work with the social work team to get appropriate follow-up and aftercare. He had significant improvement and was able to contract for safety outside of the hospital prior to discharge. During the hospitalization, the patient had routine laboratory studies which were within normal limits except for a few outliers.? Additionally, there was a general medical evaluation which was also within normal limits and revealed no new acute processes.? At the time of discharge, he denied psychosis or lethality.? Mood and anxiety were well managed.? The patient endorsed a plan to avoid all drugs of abuse and follow up with the aftercare recommendations of the treatment team.? The patient was evaluated and deemed to be absent credible lethality and had achieved the maximum benefit from an inpatient hospitalization, and so was discharged. Involuntary Hold Information 96 Hour Hold: 96 Hour Involuntary Admission: Yes 96 Hour Hold Ending Date: 05/29/23 96 Hour Hold Ending Time: 17:24 Mental Status Exam MSE Comments: This is a slender, well-developed white male in hospital scrubs with improving grooming and adequate eye contact. No abnormal movements. Cooperative with exam. Speech was more normal rate and volume. Mood described as better, affect congruent. Thought process organized. Thought content: Patient denies suicidal or homicidal ideation, there were no delusions reported or noted, he denied any auditory or visual hallucinations. Attention and concentration appeared intact and memory was mostly reliable but none were formally tested. He is alert and oriented x 3. Insight, judgment are limited and impulse control is impaired. Discharge Data Studies Completed and Pending: Completed Studies During Hospitalization Category Date Time Status XR foot RT min 3V * [id number] Stat Exams 05/22/23 16:47 Completed Radiology Impressions Foot X-Ray 05/22/23 16:47 IMPRESSION: 1. Tiny linear radiopaque focus in the soft tissues of the lateral/distal 4th toe. Possible foreign body can not be ruled out. 2. Mild soft tissue swelling at the right 4th toe. 3. No acute fracture of the right foot. Followup radiographs recommended in 7-14 days if clinical concern for fracture persists. Laboratory Results WBC 11.48 10^3/uL (3. 29-11.43) H 05/22/23 17: RBC 4.82 10^6/uL (3.8 5-5.65) 05/22/23 17: Hgb 14.80 g/dL (11.27 -16.99) 05/22/23 17: Hct 46.2 % (37-53) 05/22/23 17: MCV 95.9 fl (82-101) 05/22/23 17: MCH 30.7 pg (27-33) 05/22/23 17: MCHC 32.0 g/dL (30-55) 05/22/23 17: RDW 15.0 % (12.1-15.1 ) 05/22/23 17: Plt Count 379 10^3/cmm (157 -399) 05/22/23 17: MPV 10.0 fL (7.4-10.4 ) 05/22/23 17: Neut % (Auto) 56.7 % 05/22/23 17: Lymph % (Auto) 36.0 % 05/22/23 17: [place] % (Auto) 3.8 % 05/22/23 17: Eos % (Auto) 2.0 % 05/22/23 17: Baso % (Auto) 1.1 % 05/22/23 17: Neut # (Auto) 6.50 10^3/uL (1.8 -7.7) 05/22/23 17: Lymph # (Auto) 4.1 10^3/uL (0.8- 4.8) 05/22/23 17: [place] # (Auto) 0.4 10^3/uL (0.2- 0.9) 05/22/23 17: Eos # (Auto) 0.2 10^3/uL (0.0- 0.8) 05/22/23 17:22 Baso # (Auto) 0.1 10^3/uL (0.0- 0.1) 05/22/23 17: Nucleated RBC % (a uto) 0 % 05/22/23 17: Nucleated RBCs # 0.0 /100WBC 05/22/23 17:22 Sodium 145 mmol/L (136-1 45) 05/22/23 17:22 Potassium 4.2 mmol/L (3.5-5 .1) 05/22/23 17:22 Chloride 108 mmol/L (98-10 7) H 05/22/23 17:22 Carbon Dioxide 23 mmol/L (22-29) 05/22/23 17:22 Anion Gap 18.2 (5-19) 05/22/23 17:22 BUN 8 mg/dL (6-20) 05/22/23 17:22 Creatinine 0.6 mg/dL (0.7-1. 2) L 05/22/23 17:22 GFR Calculation 155.2 mL/min (90- 130) H 05/22/23 17: Glucose 91 mg/dL (65-115) 05/22/23 17:22 Calculated Osmolal ity 298 mOsm/kg (285- 295) H 05/22/23 17: Calcium 9.0 mg/dL (8.5-10 .5) 05/22/23 17:22 Total Bilirubin 0.2 mg/dL (0.15-1 .2) 05/22/23 17: AST 21 U/L (0-40) 05/22/23 17: ALT 11 U/L (0-41) 05/22/23 17:22 Alkaline Phosphata se 65 U/L (40-130) 05/22/23 17:22 Total Protein 7.6 g/dL (6.6-8.7 ) 05/22/23 17: Albumin 4.9 g/dL (3.5-5.2 ) 05/22/23 17: Globulin 2.7 g/dL (1.3-4.6 ) 05/22/23 17:22 Urine Color Yellow (Yellow) 05/22/23 19:08 Urine Appearance Clear (CLEAR) 05/22/23 19:08 Urine pH 5 (5-7) 05/22/23 19:08 Ur Specific Gravit y 1.015 (1.005-1.0 30) 05/22/23 19:08 Urine Protein Neg (Negative) 05/22/23 19:08 Urine Glucose (UA) Norm (Normal) 05/22/23 19:08 Urine Ketones Negative (Negati ve) 05/22/23 19:08 Urine Blood Neg (Negative) 05/22/23 19:08 Urine Nitrate Negative (Negati ve) 05/22/23 19:08 Urine Bilirubin Neg (Negative) 05/22/23 19:08 Urine Urobilinogen Norm mg/dL (Negat evelia) 05/22/23 19:08 Ur Leukocyte Grace ase Negative (Negati ve) 05/22/23 19:08 Urine Opiates Scre en Negative ng/mL (N egative) 05/22/23 17:08 Ur Barbiturates Sc reen Negative ng/mL (N egative) 05/22/23 17:08 Ur Phencyclidine S crn Negative ng/mL (N egative) 05/22/23 17:08 Ur Amphetamines Sc reen Negative ng/mL (N egative) 05/22/23 17:08 U Benzodiazepines Scrn Negative ng/mL (N egative) 05/22/23 17:08 Urine Cocaine Scre en Negative ng/mL (N egative) 05/22/23 17:08 U Marijuana (THC) Screen Negative ng/mL (N egative) 05/22/23 17:08 Ethyl Alcohol 346 mg/dL (0-10) H* 05/22/23 17:27 Vitals: Last Vital Signs Temp 98.3 F 05/25/23 06:00 Pulse 98 05/25/23 06:00 Resp 16 05/25/23 06:00 BP 112/74 05/25/23 06:00 Pulse Ox 97 05/25/23 06:00 O2 Del Method Room Air 05/25/23 06:00 Discharge Plan Discharge Patient Disposition: Home Condition: Stable Prescriptions: New Vitamin B-1 (mononitrate) 100 mg Tablet 100 mg PO DAILY 30 Days Qty: 30 1RF Discontinued chlordiazepoxide HCl 25 mg capsule 25 mg PO Q8H PRN (Reason: alcohol withdrawal) Qty: 30 0RF Discharge Orders: Discharge Order (Routine); Ordered 05/25/23 Ordered By: Mitesh Monaco Discharge Diet: Regular Discharge Activity: Resume usual activity Patient Instructions: Sulfamethoxazole/Trimethoprim (By mouth), Vitamin B Complex (By mouth), Opioid Safety Discharge Attestations NPU Time Spent in Discharge Care*: less than 30 min Specific Discharge Activities: Specific discharge activities: educating patient, discussing with piano case and bench assembler/social workers/dc planners, documenting/other paperwork and evaluating patient/reviewing data Coding Level of Care Code Acute Code for Chg Fwd Diagnoses Suicidal ideation R45.851 Acute alcohol intoxication F10.929 Alcohol withdrawal F10.939 Adjustment disorder with mixed disturbance of emotions and conduct F43.25
[2023-05-25 13:09] VITALS: BP 112/74; PULSE 98; RESP 16; TEMP 36.8; O2SAT 97
== END 2023-05-25 14:15 | disposition home or self-care (01) | DRG 897 ==
LOC: ER 16:57 → NP 17:27
PROVIDERS: Admitting Provider Psychiatry & Neurology Psychiatry; Emergency Provider Family Medicine; Visit Provider Psychiatry & Neurology Psychiatry
DX: F10.129 Alcohol abuse with intoxication, unspecified (principal); R45.851 Suicidal ideations; Y90.8 Blood alcohol level of 240 mg/100 ml or more; F17.210 Nicotine dependence, cigarettes, uncomplicated; F41.9 Anxiety disorder, unspecified; F43.25 Adjustment disorder with mixed disturbance of emotions and conduct; Z63.0 Problems in relationship with spouse or partner; Z81.1 Family history of alcohol abuse and dependence
CPT/HCPCS: 36415; 73630; 80053; 80306; 80307; 81003; 85025; 90471; 90715; 96372; 99285; J1200; J1630; J2060